=== PATIENT | male | born 1985 | race Caucasian/White ===

== ENCOUNTER 2017-01-25 17:57 | Emergency (ER) | payer OTHER ==
[~2017-01-25] VITALS: Ht 172.7 cm; Wt 72.6 kg
[2017-01-25 17:57] VITALS: BP 146/94
[~2017-01-25 17:57] MED LIST: ALBUTEROL INHAL17 GM; NOHOMEMEDICATIONS; PREDNISONE 20 M20 MG PO; PREDNISONE50 MG PO
[2017-01-25] MEDS ORDERED: MOBIC15 MG PO (18:10)
[2017-01-25] MEDS ORDERED: PENICILLIN V P500 MG PO (18:10)
[2017-01-25] MEDS ORDERED: ALBUTEROL2.5 MG/31 INH (18:11)
[2017-01-25] MEDS ORDERED: IBUPROFEN 200200 M1 PO (18:11)
[2017-01-25] MEDS ORDERED: TYLENOL325 MG PO (18:12)
== END 2017-01-25 18:32 | disposition home or self-care (01) ==
LOC: ER 17:57
DX: K02.9 Dental caries, unspecified (principal); J45.909 Unspecified asthma, uncomplicated; F10.99 Alcohol use, unspecified with unspecified alcohol-induced disorder